=== PATIENT | female | born 1980 | race African-American/Black ===

== ENCOUNTER 2021-05-22 22:13 | Emergency (ER) | payer OTHER ==
[~2021-05-22] VITALS: Ht 170.2 cm; Wt 91.0 kg
[2021-05-22 23:58] LABS: BASOPHILS % 0.3 % (0.0-2.0); EOSINOPHILS % 4.3 % (0.0-5.0); HEMATOCRIT. 33.5 % (36.0-48.0); HEMOGLOBIN. 11.1 g/dL (12.0-16.0); LYMPHOCYTES % 30.7 % (20.0-50.0); MEAN CORPUSCULAR VOLUME 87.6 fL (81.0-99.0); MEAN PLATELET VOLUME 9.4 fl (7.4-10.4); MONOCYTES % 8.4 % (2.0-8.0); NEUTROPHILS % 56.3 % (40.0-76.0); PLATELET 286 x1000/uL (130-400); RED BLOOD CELL COUNT 3.82 mill/uL (4.2-5.4); RED CELL DISTRIBUTION WIDTH 14.5 % (11.6-14.6)
[2021-05-23 00:03] LABS: CHLORIDE 111 mEq/L (98-107)
[2021-05-23 00:12] LABS: ETHANOL BLOOD < 10 mg/dL
[2021-05-23 00:15] LABS: CREATINE KINASE 266 IU/L (26-192)
[2021-05-23] MEDS ORDERED: LORAZEPAM 2MG/ML CPJ IV ONE (00:45)
[2021-05-23 01:03] LABS: CLARITY URINE CLOUDY (CLEAR); COLOR URINE DARK YELLOW (YELLOW); KETONES URINE 1+ (NEGATIVE); LEUKOCYTE ESTERASE URINE 1+ (NEGATIVE); NITRITE URINE NEGATIVE (NEGATIVE); OCCULT BLOOD URINE NEGATIVE (NEGATIVE); PROTEIN URINE 2+ (NEGATIVE); SPECIFIC GRAVITY URINE 1.037 (1.005-1.030)
[2021-05-23 01:29] LABS: *BARBITURATES SCREEN URINE NEGATIVE (NEGATIVE); *BENZODIAZEPINES SCREEN URINE NEGATIVE (NEGATIVE); METHADONE URINE SCREEN NEGATIVE (NEGATIVE); OPIATES URINE SCREEN NEGATIVE (NEGATIVE)
[2021-05-23 01:40] LABS: *AMPHETAMINES SCREEN URINE PRESUMTIVE POSITIVE (NEGATIVE); *COCAINE SCREEN URINE PRESUMTIVE POSITIVE (NEGATIVE); CANNABINOID URINE SCREEN PRESUMTIVE POSITIVE (NEGATIVE); PHENCYCLIDINE URINE SCREEN PRESUMTIVE POSITIVE (NEGATIVE)
[2021-05-23] MEDS ORDERED: HALOPERIDOL LACTATE 5MG/ML VIAL IM ONE (04:00)
[2021-05-23] MEDS ORDERED: HALOPERIDOL 5MG TABLET PO ONE (04:00)
[2021-05-23] MEDS ORDERED: NITR-87 MT (04:30)
[2021-05-23] MEDS ORDERED: NITROFURANTOIN 100MG M/M CAPSULE PO ONE (04:30)
[2021-05-23 13:30] VITALS: BP 113/60
== END 2021-05-23 14:07 | disposition home or self-care (01) ==
LOC: ER 22:13 → CANBEDREQ 05-23 03:37 → ER 05-23 14:07
DX: R41.82 Altered mental status, unspecified (principal); F19.10 Other psychoactive substance abuse, uncomplicated
CPT/HCPCS: 36415; 70450; 71045; 80053; 80305; 80307; 80320; 80329; 81003; 82140; 82550; 83605; 83690; 84443; 85025; 93005; 96372; 96374; 99285; J1630; J2060; Z7610; G0480